=== PATIENT | female | born 1930 | race Hispanic/Latino ===

== ENCOUNTER → 2018-11-23 | Day surgery (SDC) | payer MEDICARE ==
[2018-11-19 12:10] LABS: BASOPHILS % 0.8 % (0.0-1.0); EOSINOPHILS # (AUTO) 0.1 (0.0-0.4); EOSINOPHILS % 3.1 % (0.0-6.0); HEMOGLOBIN 11.3 g/dL (12.0-16.0); LYMPHOCYTES # (AUTO) 1.1 (1.0-3.2); LYMPHOCYTES % 27.4 % (18.0-39.1); MEAN CORPUSCULAR HEMOGLOBIN 33.6 pg (28-32); MEAN CORPUSCULAR HGB CONC 33.2 g/dL (31-35); MEAN CORPUSCULAR VOLUME 101.2 fL (81-99); MONOCYTES # (AUTO) 0.4 (0.2-0.8); MONOCYTES % 9.7 % (4.4-11.3); NEUTROPHILS # (AUTO) 2.3 (2.1-6.9); NEUTROPHILS % 58.7 % (38.7-80.0); PLATELET COUNT 190 x10e3/uL (140-360); RED BLOOD COUNT 3.36 x10e6/uL (3.6-5.1); RED CELL DISTRIBUTION WIDTH 13.5 % (11.7-14.4)
--- NOTE | 2018-11-19 13:07 | Diagnostic Imaging Report ---
EXAM: CHEST 2 VIEWS DATE: 11/19/2018 12:08 PM INDICATION: ^PER PROTOCOL ^[id number] ^1210 ^PRE ADMIT COMPARISON: None FINDINGS: Lines and tubes: None Heart size normal. No focal pulmonary opacity, pleural effusion or pneumothorax. Mild eventration of the left hemidiaphragm. Aortic atherosclerotic calcification is noted. Upper abdomen unremarkable. No acute bony abnormality. Degenerative changes are seen at the shoulders and thoracic spine. IMPRESSION: No evidence for acute disease. Signed by: Dr. Tommie Diggs M.D. on 11/19/2018 1:04 PM
[~2018-11-23] MED LIST: ALENDRONATE SOD70 MG PO; AMITIZA24 MCG PO; ARICEPT5 MG PO; ASPIR 8181 MG PO; ATORVASTATIN CA10 MG PO; CEFTRIAXONE SOD 1 GM/NS 50 ML 50 ML IV ONE; CENTRUM SILVER1 EAC3 PO; COMBIGAN EYE DRO5 ML OP; DEXAMETHASONE SOD PHOS INJ 4 MG/ML VIAL ONE; DORZOLAMIDE-TIM10 ML OP; EFFEXOR XR75 MG PO; EPHEDRINE SULFATE INJ 50 MG/10 ML SYR ONE; FENTANYL CITRATE/PF 100MCG/2 ML INJ ONE; IOPAMIDOL 610MG/1ML 300 MG/ML VIAL IV ONE; IRON PO; LASIX20 MG PO; LATANOPROST2.5 ML OP; LIDOCAINE HCL 2% LOCAL INJ 5 ML SDV VIAL INJ ONE; LISINOPRIL2.5 MG PO; LUMIGAN2.5 M1 OP; MELATONIN 5 MG1 EAC1 PO; METOPROLOL SUCC25 MG PO; MULTI-VITAMIN1 EACH PO; NAPROXEN500 MG PO; OMEPRAZOLE20 MG PO; ONDANSETRON HCL INJ 2MG/ML 2ML 2 MG/ML VIAL ONE; PROPOFOL IV EMULSION 10 MG/ML 20 ML VIAL ONE; SEVOFLURANE INHAL SOLN 250 ML PEN BTL ONE; TYLENOL ARTHRITIS PO; VENLAFAXINE HCL75 M1 PO
--- OUTSIDE RECORDS SUMMARY | 2018-11-23 08:46 | XMS REPORT ---
[facility] Address Unknown Phone Unavailable Care Team Providers Care Industrial Relations Representative Name Role Phone ALEM BRIGGS Unavailable Unavailable Payers Payer Name Policy Type Policy Number Effective Date Expiration Date Problems This patient has no known problems. Allergies, Adverse Reactions, Alerts Allergy Name Allergy Type Status Severity Reaction(s) Onset Date Inactive Date Treating Clinician Comments No Known Allergies DA Active U 2017-12-07 00:00:00 Medications This patient has no known medications. Results Test Description Test Time Test Comments Text Results Atomic Results Result Comments CHEST 2 VIEWS 2018-11-19 12:41:00 [place] [address] Patient Name: CHINYERE HEREDIA MR #: [id number] : 1930 Age/Sex: 87/F Req #: [id number] Adm Physician: Ordered by: ALEM BRIGGS MD Report #: [id number] Location: OR Room/Bed: Procedure: [id number] DX/CHEST 2 VIEWS Exam Date: 11/19/18 Exam Time: 1210 REPORT STATUS: Signed EXAM: CHEST 2 VIEWS DATE: 11/19/2018 12:08 PM IND ICATION: PER PROTOCOL [id number] 1210 PRE ADMIT COMPARISON: None FINDINGS: Lines and tubes: None Heart size normal. No focal pulmonary opacity, pleural effusion or pneumothorax. Mild eventration of the left hemidiaphragm. Aortic atherosclerotic calcification is noted. Upper abdomen unremarkable. No acute bony abnormality. Degenerative changes are seen at the shoulders and thoracic spine. IMPRESSION: No evidence for acute disease. Signed by: Dr. Sommer Toth M.D. on 11/19/2018 1:04 PM Dictated By: SOMMER TOTH MD [id number] Transcribed By: REILLY on 11/19/18 1852 COPY TO: ALEM BRIGGS MD
[2018-11-23 12:30] VITALS: BP 144/69
--- NOTE | 2018-11-23 20:46 | Operative Report ---
DATE OF PROCEDURE: 11/23/2018 SURGEON: Cm Albright MD PREOPERATIVE DIAGNOSES: 1. Multiple chronic urinary tract infections. 2. Clinical signs and symptoms of interstitial cystitis. POSTOPERATIVE DIAGNOSES: 1. Multiple chronic urinary tract infections. 2. Clinical signs and symptoms of interstitial cystitis. 3. Grade 2 cystocele. ANESTHESIA: General. ESTIMATED BLOOD LOSS: Minimal. PROCEDURES: 1. Cystourethroscopy with hydrodistention (entirely separate procedure for clinical signs of interstitial cystitis). 2. Cystourethroscopy with left ureteral catheterization and left retrograde pyelogram (separate procedure for multiple chronic urinary tract infections). 3. Cystourethroscopy with right ureteral catheterization and right retrograde pyelogram (separate procedure for multiple chronic urinary tract infections). 4. Supervision of fluoroscopy. 5. Interpretation of retrograde pyelography. ANESTHESIA: General. ESTIMATED BLOOD LOSS: Minimal. COMPLICATIONS: None. INDICATIONS FOR PROCEDURE: Ms. Robledo is an 87-year-old female with multiple chronic urinary tract infections. She and I had a long discussion about alternatives, risks, and benefits of doing nothing, cystoscopy, IVP, retrograde pyelogram, renal ultrasound, or hydrodistention. She voiced understanding of the options, the alternatives, the risks, and the benefits. She elected to proceed with cysto, retrograde pyelogram, and hydrodistention in order to avoid nephrotoxic risk of dye. PROCEDURE: After informed consent was obtained, the patient was taken to the operative suite. She was placed supine on the operating table. She underwent general anesthesia by Anesthesia Service. She was placed in the dorsal lithotomy position, sterilely prepped and draped in standard fashion for cystoscopy. A 22.5-Mohawk cystoscope was inserted per urethra. Normal urethra was noted. Panendoscopy of the bladder revealed no tumors and no stones. Both ureteral orifices were in normal anatomic location and position and were seen to efflux clear urine. Bilateral retrograde pyelogram was performed, which were normal. Bladder was then drained. After hydrodistention, it revealed capacity of 800 mL, no glomerulations. The patient was awakened from anesthesia and transferred to the recovery room in excellent condition with no untoward effects noted. Cm Albright MD ES/MODL /[id number] cc: Cm Albright MD
== END | disposition home or self-care (01) ==
LOC: OR 08:44
PROVIDERS: ATTEND Urology
DX: N30.11 Interstitial cystitis (chronic) with hematuria (principal); I10 Essential (primary) hypertension; R31.29 Other microscopic hematuria; N39.46 Mixed incontinence; N81.10 Cystocele, unspecified; Z01.810 Encounter for preprocedural cardiovascular examination; Z01.812 Encounter for preprocedural laboratory examination; Z01.811 Encounter for preprocedural respiratory examination
CPT/HCPCS: 36415; 52005; 71046; 74420; 85025; 93005; C1758; J0696; J1100; J2001; J2405; J2704; Q9967

== ENCOUNTER → 2020-02-28 | Day surgery (SDC) | payer MEDICARE ==
[2020-02-24 16:42] LABS: BASOPHILS % 0.2 % (0.0-1.0); EOSINOPHILS # (AUTO) 0.1 (0.0-0.4); EOSINOPHILS % 1.5 % (0.0-6.0); HEMATOCRIT 40.8 % (34.2-44.1); LYMPHOCYTES % 18.9 % (18.0-39.1); MEAN CORPUSCULAR HEMOGLOBIN 32.2 pg (28-32); MEAN CORPUSCULAR HGB CONC 31.9 g/dL (31-35); MONOCYTES # (AUTO) 0.6 (0.2-0.8); MONOCYTES % 12.1 % (4.4-11.3); NEUTROPHILS # (AUTO) 3.5 (2.1-6.9); NEUTROPHILS % 66.7 % (38.7-80.0); PLATELET COUNT 228 x10e3/uL (140-360); RED BLOOD COUNT 4.04 x10e6/uL (3.6-5.1); RED CELL DISTRIBUTION WIDTH 13.5 % (11.7-14.4)
[~2020-02-28] MED LIST changes: -CEFTRIAXONE SOD 1 GM/NS 50 ML 50 ML IV ONE; -DEXAMETHASONE SOD PHOS INJ 4 MG/ML VIAL ONE; +DICYCLOMINE HCL20 MG PO; -EPHEDRINE SULFATE INJ 50 MG/10 ML SYR ONE; -FENTANYL CITRATE/PF 100MCG/2 ML INJ ONE; -IOPAMIDOL 610MG/1ML 300 MG/ML VIAL IV ONE; +MIRTAZAPINE7.5 MG PO; +OMEPRAZOLE40 MG PO; -ONDANSETRON HCL INJ 2MG/ML 2ML 2 MG/ML VIAL ONE; +ONDANSETRON HCL4 MG PEG; -SEVOFLURANE INHAL SOLN 250 ML PEN BTL ONE
[2020-02-28 07:45] VITALS: BP 138/76
== END | disposition home or self-care (01) ==
LOC: OR 05:21
PROVIDERS: ATTEND Internal Medicine Gastroenterology
DX: R63.0 Anorexia (principal); K29.50 Unspecified chronic gastritis without bleeding; K44.9 Diaphragmatic hernia without obstruction or gangrene; K21.9 Gastro-esophageal reflux disease without esophagitis; R63.4 Abnormal weight loss; I10 Essential (primary) hypertension; H91.90 Unspecified hearing loss, unspecified ear; E78.5 Hyperlipidemia, unspecified; N39.0 Urinary tract infection, site not specified; F32.9 Major depressive disorder, single episode, unspecified; Z88.2 Allergy status to sulfonamides; Z01.810 Encounter for preprocedural cardiovascular examination; Z01.812 Encounter for preprocedural laboratory examination; Z11.59 Encounter for screening for other viral diseases; Z79.82 Long term (current) use of aspirin; Z83.71 Family history of colonic polyps
CPT/HCPCS: 36415; 43239; 85025; 88305; 88312; 93005; J2001; J2704; U0002